=== PATIENT | male | born 1950 | race Caucasian/White ===

== ENCOUNTER 2017-03-09 18:02 | Emergency (ER) | payer MEDICARE ==
[~2017-03-09 18:02] MED LIST: Iopamidol 370 76% 100 ML VIAL ONE
[2017-03-09] MEDS ORDERED: Adacel (T-DAP) 0.5 ML VIAL ONE (18:06)
[2017-03-09 18:26] LABS: #Basophils 0.1 thou/uL (0.0-0.2); #Eosinphils 0.5 thou/uL (0.0-0.7); #Lymphocytes 2.1 thou/uL (1.20-3.40); #Monocytes 0.6 thou/uL (0.11-0.59); #Neutrophils 3.7 thou/uL (1.40-6.50); %Basophils 0.9 % (0.0-1.0); %Eosinophils 7.3 % (0.0-10.0); %Lymphocytes 29.7 % (21.0-51.0); %Monocytes 9.3 % (0.0-10.0); %Neutrophils 52.8 % (42.0-75.0); Hemoglobin 15.5 g/dL (14.0-18.0); Mean Corpuscular HGB CONC 35.2 g/dL (32.0-36.0); Mean Corpuscular Hemoglobin 31.7 pg (27.0-31.0); Mean Corpuscular Volume 89.9 fl (80.0-94.0); Mean Platelet Volume 8.6 fL (7.4-10.4); Platelet Count 199 thou/uL (130-400); RBC Distribution Width 11.6 % (11.5-14.5); Red Blood Cell (RBC) Count 4.89 mill/uL (4.70-6.10); White Blood Cell (WBC) Count 6.9 thou/uL (4.8-10.8)
[2017-03-09 18:40] LABS: ALT (SGPT) 26 U/L (8-55); AST (SGOT) 29 U/L (5-34); Alkaline Phosphatase 65 U/L (40-150); Anion Gap 18 mmol/L (10-20); BUN (Urea Nitrogen) 22 mg/dL (8.4-25.7); Bilirubin, Total 0.4 mg/dL (0.2-1.2); Calc. Creatinine Clearance 0 mL/min (70-130); Calcium 9.6 mg/dL (7.8-10.44); Carbon Dioxide 20 mmol/L (23-31); Chloride 106 mmol/L (98-107); Estimated GFR-MDRD 34; Glucose 175 mg/dL (80-115); Sodium 140 mmol/L (136-145)
[2017-03-09] MEDS ORDERED: HYDROcodone/Acetaminophen 10/325 mg Tablet ONE (19:24)
--- NOTE | 2017-03-09 19:37 | RAD ---
PORTABLE CHEST: Date: 03-09-17 Time: 1805 hours. FINDINGS: Normal sized heart for age and projection. There is no mediastinal widening or shift. The trachea is midline. The lungs are fully inflated and clear. No infiltrate or effusion was appreciated. While t here are some rib fractures on the right, they appear to be old. See CT report to follow. IMPRESSION: No definite acute finding. POS: HOME
--- NOTE | 2017-03-09 20:45 | CT ---
CT BRAIN WITHOUT CONTRAST: Date: 03-09-[address] was performed. FINDINGS: The ventricles are normal in size for age and show no shift. No intracranial bleeding or extraaxial hematoma was seen. There is no sign of acute stroke, mass, or edema. The calvarium appears intact. T he sphenoid sinus is clear. There may be some cerebellar atrophy. IMPRESSION: No acute intracranial findings. POS: HOME
--- NOTE | 2017-03-09 21:02 | CT ---
CT CERVICAL SPINE: Date: 03-09-[address] of the cervical spine was performed for evaluation following trauma. Axial slices were acq uired then coronal and sagittal reconstructions were done. FINDINGS: The patient has had a prior anterior cervical fusion at the C4 through C6 levels. Disc spaces are in adequate positions. The screw in the anterior plate at the C6 level on the left side has backed out most of the way and prominently protrudes into the prevertebral soft tissues. An elective follow up evaluation by neurosurgeon should be considered. There is mild anterior subluxation of C3 on C4. Th is is probably due to facet changes. I see no fractures or other acute bony issues to explain it. Th e C1-2 dens distance is normal. The soft tissues are normal in thickness. Findings my level follow: C1-2: No acute findings. C2-3: Mild right foraminal narrowing due to osteophytes. Significant facet arthritis on the right si de. C3-4: Moderate bilateral facet arthritis and moderate bilateral foraminal narrowing. C4-5: No acute findings. C5-6: No acute findings. C6-7: No acute findings, but note above regarding a screw in the anterior plate at this level. C7-T1: No acute findings. T1-2: No acute findings. IMPRESSION: 1. No acute traumatic changes. 2. 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 Note, left carolee ed screw at C6 has backed out significantly and may need follow up. 3. Mild anterior subluxation of C3 on C4, probably not acute. POS: HOME
--- NOTE | 2017-03-09 21:08 | CT ---
CT OF THE CHEST WITH CONTRAST CT OF THE ABDOMEN AND PELVIS WITH CONTRAST: Date: 03-09-17 Technique: Spiral CT of the chest, abdomen, and pelvis was done after injection of IV contrast. Axia l slices were initially obtained then coronal and sagittal reconstructions were done. The reconstruc tions included the entire thoracolumbar spine. The scan did not include the inferior most portions o f the pelvis around the pubic rings. FINDINGS: CT THORAX: The mediastinum shows no hematoma or other acute change. There is no evidence of vascular damage. No pericardial fluid was seen. The lungs are clear except for some dependent atelectasis. While there is evidence of some old healed rib fractures bilaterally, some acute fractures are seen involving th e right 4th, 5th and 6th ribs laterally. Other ribs might be involved, but these are for sure. The deformities of left posterior ribs seems more likely old than new. The thoracic vertebrae all appea red intact. CT ABDOMEN/PELVIS: All major organs appear intact with no sign of laceration or hematoma. The liver, spleen, pancreas, gallbladder, adrenal glands and abdominal aorta showed no acute changes. Several very large cysts ar e seen associated with the right kidney, the largest measuring about 4.6 cm in size. No acute trauma tic findings are seen in either kidney. Some stranding is seen around the kidneys, but given the nor mal appearance of the kidneys, it is more likely longstanding than acute. The bowel is nondistended. No free air or free fluid was seen. CT of the pelvis shows no pelvic masses, fluid collections, or other acute changes. The left seminal vesicle seems a bit rounded and more prominent than the right. This finding may or may not be signi ficant, however. No pelvic fractures were seen, though the inferior pubic rings were not assessed on this study. Ther e is a fracture of the left transverse process of L1, and possibly L2, with little displacement. Th ere is contusion of the overlying soft tissues in the left posterior back. No major vertebral body fractures were seen. IMPRESSION: 1. Acute fractures of at least the right fourth through sixth ribs. 2. Old well healed bilateral rib fractures. 3. No acute traumatic changes to the mediastinum, heart, lungs or major abdominal organs. 4. Fracture of the left transverse process of L1, and possibly L2, with overlying contusion of the soft tissues of the left posterior back. 5. Other chronic findings as listed above. POS: HOME
--- NOTE | 2017-03-09 21:23 | RAD ---
PELVIS ONE VIEW: Date: 03-09-17 FINDINGS: Single view of the pelvis mainly concentrates on the lower three quarters of the area. No fractures were apparent. The hip joints were symmetrical. Each femoral head and neck appeared intact. The pubi c rings appear intact and the symphysis shows no widening or off set. The SI joints are symmetrical. What I can see of the arcuate lines of the sacrum appear normal. IMPRESSION: No acute finding. POS: HOME
== END 2017-03-09 20:08 | disposition home or self-care (01) ==
LOC: BURERS 18:02
DX: S22.41XA Multiple fractures of ribs, right side, initial encounter for closed fracture (principal); S00.83XA Contusion of other part of head, initial encounter; S30.811A Abrasion of abdominal wall, initial encounter; E11.9 Type 2 diabetes mellitus without complications; E78.5 Hyperlipidemia, unspecified; I10 Essential (primary) hypertension; W55.12XA Struck by horse, initial encounter
CPT/HCPCS: 70450; 71010; 71260; 72125; 72170; 74177; 80053; 82550; 85025; 90471; 90715; 94799; 96360; A4216

== ENCOUNTER 2018-01-05 14:26 | Emergency (ER) | payer MEDICARE ==
[2018-01-05 15:09] LABS: #Eosinphils 0.4 thou/uL (0.0-0.7); #Lymphocytes 1.2 thou/uL (1.20-3.40); #Monocytes 1.1 thou/uL (0.11-0.59); #Neutrophils 5.7 thou/uL (1.40-6.50); %Basophils 0.5 % (0.0-1.0); %Eosinophils 4.7 % (0.0-10.0); %Lymphocytes 14.4 % (21.0-51.0); %Monocytes 12.6 % (0.0-10.0); %Neutrophils 67.8 % (42.0-75.0); Hemoglobin 16.1 g/dL (14.0-18.0); Mean Corpuscular HGB CONC 36.2 g/dL (32.0-36.0); Mean Corpuscular Hemoglobin 30.4 pg (27.0-31.0); Mean Corpuscular Volume 83.8 fl (80.0-94.0); Mean Platelet Volume 7.1 fL (7.4-10.4); Platelet Count 181 thou/uL (130-400); RBC Distribution Width 11.3 % (11.5-14.5); White Blood Cell (WBC) Count 8.5 thou/uL (4.8-10.8)
[2018-01-05 15:23] LABS: Anion Gap 15 mmol/L (10-20); BUN (Urea Nitrogen) 15 mg/dL (8.4-25.7); Calc. Creatinine Clearance 0 mL/min (70-130); Calcium 9.8 mg/dL (7.8-10.44); Carbon Dioxide 25 mmol/L (23-31); Chloride 97 mmol/L (98-107); Estimated GFR-MDRD 54; Glucose 189 mg/dL (80-115); Potassium 3.9 mmol/L (3.5-5.1); Sodium 133 mmol/L (136-145)
--- NOTE | 2018-01-05 18:05 | CT ---
CT NECK SOFT TISSUES WITH CONTRAST: 01/05/2018 HISTORY: A spiral CT of the neck was performed for evaluation of some left facial swelling. COMPARISON: Partial comparison was made with a CT of the cervical spine, dated 03/09/2017, which covered some of the same regions. TECHNIQUE: Axial slices were acquired, after giving IV contrast, and coronal and sagittal reconstructions were d one. FINDINGS: There is a very small amount of periapical lucency around one of the mandibular molars on the left; h owever, the amount if minimal. I can just barely see this molar on the 2016 CT cervical spine study, and I am not sure it is much different than before. No large gross abscess is seen, either in the j aw or the surrounding soft tissues. The left masseter muscle may be slightly larger than the right, but I see no low density internally. The cervical nodes on the left are slightly larger than the rig ht, a nonspecific finding. The largest is just over 1 cm in size. The paranasal sinuses are clear, except for some minor mucosal thickening in the base of each maxillary sinus. No gross maxillary abs cesses are seen, though artifact from the patient's dental work decreases the sensitivity of the stud y. Internally, the airway is patent. There may be a trifle of asymmetry on the left side of the pat ient's tonsillar region, but not by much, and there is certainly no lucent area to suggest peritonsil lar abscess at this time. Incidental finding on this study is a prior anterior cervical fusion at C4 through C5. One of the sc rews in the anterior plate at C6 has largely backed out and pokes into the prevertebral soft tissues. This finding was present on the February [address], and the position does not really seem much different. Additionally, there is an anterior subluxation of C3 on C4, which was present before and has not changed in appearance. The prevertebral soft tissues show no thickening. IMPRESSION: 1. Somewhat soft findings with some minimal periapical lucency around one left mandibular molar, and perhaps slight enlargement of the left masseter muscle. The significance of the finding is not keely r. No focal abscess in the soft tissues or large periapical abscesses were encountered. 2. Status post anterior cervical fusion of the spine with a screw at the C6 level backed out from it s normal position. [id number], its position is unchanged since 2017. 3. Anterior subluxation of C3 on C4, unchanged. POS: HOME
== END 2018-01-05 16:43 | disposition home or self-care (01) ==
LOC: BURERS 14:26
DX: K05.30 Chronic periodontitis, unspecified (principal); E11.9 Type 2 diabetes mellitus without complications; Z79.899 Other long term (current) drug therapy; Z79.84 Long term (current) use of oral hypoglycemic drugs; Z79.82 Long term (current) use of aspirin
CPT/HCPCS: 70491; 80048; 85025; 96360; A4216

== ENCOUNTER 2022-09-09 21:18 | Emergency (ER) | payer OTHER, MEDICARE ==
[2022-09-09] MEDS ORDERED: HYDROcodone/Acetaminophen 10/325 mg Tablet ONE (21:28)
== END 2022-09-09 22:23 | disposition home or self-care (01) ==
LOC: BURERS 21:18
DX: M43.6 Torticollis (principal); M79.18 Myalgia, other site; E11.9 Type 2 diabetes mellitus without complications; E78.5 Hyperlipidemia, unspecified; I10 Essential (primary) hypertension; Z79.899 Other long term (current) drug therapy; Z79.82 Long term (current) use of aspirin; Z79.84 Long term (current) use of oral hypoglycemic drugs
CPT/HCPCS: 72125; 72128

== ENCOUNTER 2023-03-17 15:00 | Emergency (ER) | payer OTHER, MEDICARE ==
[2023-03-17] MEDS ORDERED: Boostrix 0.5 ML (Tdap) VIAL (>/=7 yrs of age) ONE (15:21)
[2023-03-17] MEDS ORDERED: Lidocaine 1% PF 5 ML VIAL ONE (15:21)
== END 2023-03-17 15:53 | disposition home or self-care (01) ==
LOC: BURERS 15:00
DX: S81.012A Laceration without foreign body, left knee, initial encounter (principal); E78.5 Hyperlipidemia, unspecified; E11.9 Type 2 diabetes mellitus without complications; I10 Essential (primary) hypertension; W29.3XXA Contact with powered garden and outdoor hand tools and machinery, initial encounter; Z79.82 Long term (current) use of aspirin; Z79.84 Long term (current) use of oral hypoglycemic drugs; Z79.899 Other long term (current) drug therapy; Z23 Encounter for immunization
CPT/HCPCS: 12002; 90471; 90715